=== PATIENT | male | born 1940 | race Caucasian/White ===

== ENCOUNTER 2019-06-22 18:34 | Inpatient (IN) | payer OTHER ==
[~2019-06-22] VITALS: Ht 170.2 cm; Wt 101.1 kg
[2019-06-22 19:00] LABS: BASOPHILS % (AUTO) 0 % (0-1); EOSINOPHILS # (AUTO) 0.06 x10^3/uL (0-0.4); EOSINOPHILS % (AUTO) 1 % (1-7); LYMPHOCYTES # (AUTO) 0.65 x10^3/uL (1-3.4); LYMPHOCYTES % (AUTO) 7 % (22-44); MD NO; MEAN CORPUSCULAR HEMOGLOBIN 27.7 pg (27.5-34.5); MEAN CORPUSCULAR HGB CONC 31.5 g/dL (33.2-36.2); MEAN PLATELET VOLUME 7.5 fL (7.4-10.4); MONOCYTES # (AUTO) 0.16 x10^3/uL (0.2-0.8); MONOCYTES % (AUTO) 2 % (2-9); NEUTROPHILS # (AUTO) 8.64 x10^3/uL (1.8-6.8); NEUTROPHILS % (AUTO) 91 % (42-75); PLATELET COUNT 222 x10^3/uL (130-400); RED BLOOD COUNT 4.15 x10^6/uL (4.38-5.82); RED CELL DISTRIBUTION WIDTH 21.6 % (9.4-14.8)
[2019-06-22] MEDS ORDERED: SODIUM CHLORIDE FLUSH 10ML SYR IVF ONE (19:00)
--- NOTE | 2019-06-22 19:04 | NUR ---
LATE NOTE ENTRY DUE TO PT CARE FOR 183: Pt [facility] for c/o "general malaise, sob for 3 to 4 days, increased lower extremity swelling bilaterally and bilateral lung bases crackles heard on auscultation." Pt resting on gurney connected to NIBP cuff, continous pulse ox monitor, and patient monitor. Pt on 2 L oxygen via [place]. Pt does not report wearing oxygen at home. Pt reports a suprapubic catheter prior to arrival. Pt has 20g PIV in left forearm prior to arrival. Pt is AOX4, skin is pink, warm, dry, and intact. Edema and swelling noticed on bilateral lower extremities. Pt has PMH of CHF with recent "re-start" of Lasix over the period of the last 3 days. Bedrails up x 2, call light within reach.
--- NOTE | 2019-06-22 19:07 | NUR ---
Provided bedside report to HERSON Lopez. All questions answered. HERSON Lopez to assume care of pt at this time. NADN. No needs expressed at this time.
[2019-06-22 19:12] LABS: ALANINE AMINOTRANSFERASE 17 U/L (12-78); ALBUMIN 3.1 g/dL (3.4-5.0); ANION GAP 10 mmol/L (5-15); CALCIUM 8.3 mg/dL (8.5-10.1); CHLORIDE 101 mmol/L (98-107); CREATININE 1.75 mg/dL (0.7-1.3); INTERNATIONAL NORMALIZED RATIO 1.07 (0.93-1.1); PROTHROMBIN TIME 11.3 Seconds (9.6-11.5)
[2019-06-22 19:16] LABS: ALKALINE PHOSPHATASE 106 U/L (45-117); BILIRUBIN,TOTAL 0.6 mg/dL (0.2-1.0); TOTAL PROTEIN 7.1 g/dL (6.4-8.2); TROPONIN I 0.026 ng/mL (0.000-0.045)
--- NOTE | 2019-06-22 19:18 | NUR ---
Received report and assumed patient care. Patient resting in bed. patient is alert, oriented and responds to questions clearly and concisely. Awaiting admission.
[2019-06-22] MEDS ORDERED: CEFTRIAXONE PMX 1GM/50ML 50 ML IVPB ONE (20:00)
[2019-06-22] MEDS ORDERED: CEFTRIAXONE PMX 1GM/50ML 50 ML ONE (20:25)
[2019-06-22 22:34] VITALS: BP 149/93
[2019-06-22] MEDS ORDERED: LIDODERM 5% PATCH TD PRN (23:30)
[2019-06-22] MEDS ORDERED: BISACODYL 10 MG SUPP PR PRN (23:30)
[2019-06-22] MEDS ORDERED: ACETAMINOPHEN 325 MG TABLET PO PRN (23:30)
[2019-06-22] MEDS ORDERED: hydrALAzine 20 MG/ML, 1ML IVPush PRN (23:30)
[2019-06-22] MEDS ORDERED: TEMAZEPAM 15 MG CAPSULE PO PRN (23:30)
[2019-06-23 00:45] VITALS: BP 154/88
[2019-06-23 05:00] LABS: BASOPHILS # (AUTO) 0.01 x10^3/uL (0-0.1); BASOPHILS % (AUTO) 0 % (0-1); EOSINOPHILS % (AUTO) 0 % (1-7); LYMPHOCYTES % (AUTO) 9 % (22-44); MD NO; MEAN CORPUSCULAR HEMOGLOBIN 27.8 pg (27.5-34.5); MEAN PLATELET VOLUME 8.1 fL (7.4-10.4); MONOCYTES # (AUTO) 0.14 x10^3/uL (0.2-0.8); MONOCYTES % (AUTO) 2 % (2-9); NEUTROPHILS % (AUTO) 89 % (42-75); PLATELET COUNT 220 x10^3/uL (130-400); RED BLOOD COUNT 3.98 x10^6/uL (4.38-5.82); RED CELL DISTRIBUTION WIDTH 21.2 % (9.4-14.8)
[2019-06-23 05:08] LABS: ANION GAP 9 mmol/L (5-15); CALCIUM 8.5 mg/dL (8.5-10.1); CHLORIDE 102 mmol/L (98-107)
[2019-06-23 05:09] LABS: CREATININE 1.63 mg/dL (0.7-1.3)
[2019-06-23] MEDS: methylPREDNISolone SOD SUCC 40 MG/ML IVPush SCH ×2 (05:40)
[2019-06-23] MEDS ORDERED: FUROSEMIDE 40 MG/4 ML IV SCH (07:30)
[2019-06-23] MEDS ORDERED: ACETAMINOPHEN 325 MG TABLET PO PRN (08:00)
[2019-06-23] MEDS: BENZONATATE 100 MG CAPSULE PO SCH ×4 (08:08→21:31)
[2019-06-23] MEDS: HEPARIN 5,000 UNITS/ML, 1ML SQ SCH ×2 (08:10→16:30)
[2019-06-23] MEDS: CARVEDILOL 3.125 MG TABLET PO SCH ×2 (08:10→18:43)
[2019-06-23] MEDS: CEFTRIAXONE PMX 2GM/50ML 50 ML IV SCH (08:22)
[2019-06-23 08:52] VITALS: BP 148/99
[2019-06-23] MEDS: INSULIN LISPRO 100 UNITS/ML, PEN SQ-INSULIN SCH ×4 (08:56→21:30)
[2019-06-23] MEDS: DOXYCYCLINE 100 MG in DEXTROSE 5% 250 ML IV SCH ×2 (09:57→21:29)
[2019-06-23] MEDS ORDERED: INSULIN LISPRO 100 UNIT/ML, 3ML VIAL SQ-INSULIN ONE (13:30)
[2019-06-23 13:34] VITALS: BP 147/88
[2019-06-23] MEDS: ISOSORBIDE DINITRATE 10 MG TABLET PO SCH ×2 (16:30→21:31)
[2019-06-23] MEDS: FUROSEMIDE 40 MG TABLET PO SCH (21:32)
[2019-06-23 21:48] VITALS: BP 136/58
[2019-06-24 01:10] LABS: RAPID INFLUENZA A Negative (Negative); RAPID INFLUENZA B Negative (Negative)
[2019-06-24 01:17] VITALS: BP 146/82
[2019-06-24] MEDS: HEPARIN 5,000 UNITS/ML, 1ML SQ SCH ×4 (01:42→23:55)
[2019-06-24 04:20] LABS: ANION GAP 7 mmol/L (5-15); CALCIUM 8.9 mg/dL (8.5-10.1); CHLORIDE 101 mmol/L (98-107); CREATININE 1.55 mg/dL (0.7-1.3)
[2019-06-24] MEDS: CARVEDILOL 3.125 MG TABLET PO SCH (05:43)
[2019-06-24 07:51] VITALS: BP 151/110
[2019-06-24] MEDS: FUROSEMIDE 40 MG TABLET PO SCH ×2 (08:51→20:09)
[2019-06-24] MEDS: DOXYCYCLINE 100MG CAP PO SCH ×2 (08:51→20:09)
[2019-06-24] MEDS: BENZONATATE 100 MG CAPSULE PO SCH ×3 (08:51→20:09)
[2019-06-24] MEDS: ISOSORBIDE DINITRATE 10 MG TABLET PO SCH ×3 (08:52→20:10)
[2019-06-24] MEDS: CEFTRIAXONE PMX 2GM/50ML 50 ML IV SCH (08:52)
[2019-06-24] MEDS: INSULIN LISPRO 100 UNITS/ML, PEN SQ-INSULIN SCH ×4 (08:53→20:08)
[2019-06-24 13:35] VITALS: BP 142/95
[2019-06-24] MEDS: CARVEDILOL 6.25 MG TABLET PO SCH (18:42)
[2019-06-24 20:07] VITALS: BP 125/86
[2019-06-24] MEDS ORDERED: SENNA/DOCUSATE TABLET PO SCH (21:00)
[2019-06-25 02:46] VITALS: BP 140/83
[2019-06-25 04:33] LABS: OCCULT BLOOD NEGATIVE (NEGATIVE)
[2019-06-25] MEDS: CARVEDILOL 6.25 MG TABLET PO SCH (05:14)
[2019-06-25 05:55] LABS: ANION GAP 6 mmol/L (5-15); CALCIUM 8.8 mg/dL (8.5-10.1); CHLORIDE 101 mmol/L (98-107)
[2019-06-25 05:59] LABS: CREATININE 1.45 mg/dL (0.7-1.3)
[2019-06-25 08:00] VITALS: BP 121/78
[2019-06-25] MEDS: ISOSORBIDE DINITRATE 10 MG TABLET PO SCH ×2 (08:02→15:50)
[2019-06-25] MEDS: HEPARIN 5,000 UNITS/ML, 1ML SQ SCH ×2 (08:02→15:51)
[2019-06-25] MEDS: INSULIN LISPRO 100 UNITS/ML, PEN SQ-INSULIN SCH ×3 (08:02→15:52)
[2019-06-25] MEDS: FUROSEMIDE 40 MG TABLET PO SCH (08:03)
[2019-06-25] MEDS: BENZONATATE 100 MG CAPSULE PO SCH ×2 (08:03→15:50)
[2019-06-25] MEDS: DOXYCYCLINE 100MG CAP PO SCH (08:03)
[2019-06-25] MEDS: CEFTRIAXONE PMX 2GM/50ML 50 ML IV SCH (09:20)
[2019-06-25] MEDS ORDERED: CARV6.2512 PO (10:46)
[2019-06-25] MEDS ORDERED: DOXY100C2 PO (10:46)
[2019-06-25] MEDS ORDERED: BENZ-17 PO (10:46)
[2019-06-25] MEDS ORDERED: FURO40TA6 PO (10:46)
[2019-06-25] MEDS ORDERED: ISOS10TA2 PO (10:46)
[2019-06-25] MEDS ORDERED: INSU100I11 SQ-INSULIN (10:46)
[2019-06-25] MEDS ORDERED: SENN-193 PO (10:46)
[2019-06-25] MEDS ORDERED: HYDR-3342 PO (10:46)
[2019-06-25] MEDS ORDERED: AMOX-291 PO (10:47)
[2019-06-25] MEDS ORDERED: LISI5TAB7 PO (10:47)
[2019-06-25 15:52] VITALS: BP 142/101
== END 2019-06-25 17:10 | DRG 871 ==
LOC: ED 20:16 → EDIP 20:20 → 4WST 21:29
PROVIDERS: ADMIT Family Medicine; ATTEND Family Medicine
DX: A41.9 Sepsis, unspecified organism (principal); J96.00 Acute respiratory failure, unspecified whether with hypoxia or hypercapnia; G82.50 Quadriplegia, unspecified; J18.9 Pneumonia, unspecified organism; I50.33 Acute on chronic diastolic (congestive) heart failure; E87.1 Hypo-osmolality and hyponatremia; C61 Malignant neoplasm of prostate; D64.9 Anemia, unspecified; E11.40 Type 2 diabetes mellitus with diabetic neuropathy, unspecified; E11.65 Type 2 diabetes mellitus with hyperglycemia; E66.9 Obesity, unspecified; Z68.34 Body mass index [BMI] 34.0-34.9, adult; E78.00 Pure hypercholesterolemia, unspecified; E78.5 Hyperlipidemia, unspecified; G47.33 Obstructive sleep apnea (adult) (pediatric); I11.0 Hypertensive heart disease with heart failure; I35.0 Nonrheumatic aortic (valve) stenosis; L89.159 Pressure ulcer of sacral region, unspecified stage; N31.9 Neuromuscular dysfunction of bladder, unspecified; T38.0X5A Adverse effect of glucocorticoids and synthetic analogues, initial encounter; Y92.89 Other specified places as the place of occurrence of the external cause; Z85.038 Personal history of other malignant neoplasm of large intestine; Z86.718 Personal history of other venous thrombosis and embolism; Z92.3 Personal history of irradiation; Z95.0 Presence of cardiac pacemaker; Z98.1 Arthrodesis status; Z79.899 Other long term (current) drug therapy; Z79.4 Long term (current) use of insulin
CPT/HCPCS: 36415; 36600; 71045; 80048; 80053; 82272; 82803; 82947; 82962; 83036; 83605; 83880; 84484; 85025; 85610; 87040; 87070; 87186; 87205; 87400; 93005; 93306; 93970; 96374; G0378; J0696; J1644; J1940; J7060; J1815; J2920